=== PATIENT | male | born 1960 | race Caucasian/White ===

== ENCOUNTER → 2017-04-27 | Outpatient (CLI) | payer OTHER ==
[2017-04-27 16:18] LABS: ABG ALLEN TEST POS; ABG HCO3 25.1 mmol/L (22-26)
== END | disposition home or self-care (01) ==
LOC: RT 15:57
DX: I34.0 Nonrheumatic mitral (valve) insufficiency (principal); I50.9 Heart failure, unspecified; I25.10 Atherosclerotic heart disease of native coronary artery without angina pectoris
CPT/HCPCS: 36600; 82803